=== PATIENT | female | born 1985 | race Caucasian/White ===

== ENCOUNTER → 2016-12-14 08:41 | Outpatient (CLI) | payer MEDICAID ==
[2016-05-03 09:32] VITALS: BMI 24.3
[~2016-12-14 08:41] MED LIST: ASCORBIC ACID500 MG PO; BIRTH CONTROL; CELEXA10 MG PO; MAGNESIUM; OMEPRAZOLE20 M1 PO; PROMETRIUM100 MG PO; SINGULAIR10 MG PO; VITAMIN B COMPL1 TAB PO; XOPENEX HFA15 GM INH; ZYRTEC10 MG PO
[2016-12-14 09:27] LABS: CREATININE - SERUM 0.6 mg/dL (0.6-1.3)
== END | disposition home or self-care (01) ==
LOC: D.CT 10-12 09:00 → D.LAB 10-12 10:15 → D.CT 08:41
PROVIDERS: Internal Medicine Pulmonary Disease
DX: R91.8 Other nonspecific abnormal finding of lung field (principal)

== ENCOUNTER → 2017-01-11 09:40 | Outpatient (CLI) | payer MEDICAID ==
[2016-05-03 09:32] VITALS: BMI 24.3
--- NOTE | 2017-01-18 14:38 | EC ---
PATIENT:APURVA STAHL DATE OF SERVICE: 01/11/17 SEX: F MEDICAL RECORD: [id number] DATE OF : [birth year] [facility] AGE OF PATIENT: 31 ADMISSION DATE: 01/11/17 REFERRING PHYSICIAN: INTERPRETING PHYSICIAN: CHRISTY MASTERSON MD ECHOCARDIOGRAM REPORT ECHO CHARGES 4 ECHO COMPLETE CLINICAL DIAGNOSIS: PALPITATIONS ECHOCARDIOGRAPHIC MEASUREMENTS (adult normal given) AC root (d.<3.7cm) 3.6 LV Septum d (<1.2 cm> 1.5 Valve Excursion 1.6 LV Septum (systole) 1.8 Left Atria (s.<4.0cm> 3.9 LVPW d(<1.2cm) 1.2 RV (d.<2.3cm) 3.9 LVPW (sytole) 1.5 LV diastole(<5.6CM) 4.9 MV E-F(>70mm/sec) LV systole 2.9 LVOT Diameter 2.1 MV exc.(>10mm) Est.ejection fraction (50-75%) Pericardial Effusion N DOPPLER: LVIT A 48.0 E 124 LA RVSP 39 LVOT 121 AOP1/2T Asc. Ao 152 RVOT 74 RA PA 89 AV Gradient Peak 9.24 AV Mean 5.19 AV Area 2.6 MV Gradient Peak 7.93 MV Mean 1.91 MV Area COMMENTS: Rn Sane: [employer] Driver:1 Dr. Masterson TAPE# PACS DATE OF SERVICE: 01/11/2017 Echocardiogram FINDINGS: 1. Left ventricular chamber size is within normal limits. Left ventricular systolic function is normal. Overall ejection fraction estimated at 60%. 2. Left atrium, right atrium, right ventricle chamber sizes are within normal limits. 3. Valvular structures have normal structure and motion. ECHOCARDIOGRAM REPORT [id number] APURVA STAHL 4. Doppler interrogation reveals only mild mitral regurgitation, mild tricuspid regurgitation. No other valvular insufficiency or stenosis. Pulmonary systolic pressure is estimated at 39 mmHg. 5. No evidence of pericardial effusion or left ventricular thrombus. TRANSINT:[id number] Voice Confirmation ID: [id number] DOCUMENT ID: [id number] CHRISTY MASTERSON MD at 6106 CC: [id number] DICTATION DATE: 01/11/17 1211 ADULT CARE PROVIDER: 01/12/17 0123 DEP CLI 01/11/17 [facility] [id number] [place] [address]
== END | disposition home or self-care (01) ==
LOC: D.ECHO 09:40
DX: R00.2 Palpitations (principal)